=== PATIENT | female | born 1965 | race Caucasian/White ===

== ENCOUNTER 2017-05-31 18:04 | Emergency (ER) | payer SELFPAY ==
[~2017-05-31] VITALS: Ht 147.3 cm; Wt 86.2 kg
[~2017-05-31 18:04] MED LIST: HYDR-4446 PO
[2017-05-31 18:27] VITALS: BP 145/94
[2017-05-31] MEDS ORDERED: IBUPROFEN 400 MG TAB PO ONE (18:35)
--- NOTE | 2017-05-31 19:40 | NUR ---
PT. AMBULATES TO ER OF 1
[2017-05-31] MEDS ORDERED: KETOROLAC 60 MG/2 ML VIAL IM ONE (19:45)
--- NOTE | 2017-05-31 19:45 | NUR ---
Patient being evaluated by MELLISA ATKINS at bedside.
--- NOTE | 2017-05-31 19:45 | NUR ---
51Y/F PT. BIB DAUGHTER WITH C/O RIGHT KNEE PAIN 08/24, JUMP OFF THE BED AND FELT HER RIGHT KNEE POP LAST WEDNESDAY MORNING. AAO X4, AMBULATORY WITH UNSTEADY GAIT DUE TO PAIN TO RT. KNEE. C/O PAIN 05/24. VSS, NO S/SX OF DISTRESS AT THIS TIME.
--- NOTE | 2017-05-31 20:15 | NUR ---
Patient discharged with v/s stable. Written and verbal after care instructions given and explained. Patient alert, oriented and verbalized understanding of instructions. Ambulatory with steady gait. All questions addressed prior to discharge. ID band removed. Patient advised to follow up with PMD. Rx of MOTRIN 800 MG given. Patient educated on indication of medication including possible reaction and side effects. Opportunity to ask questions provided and answered. D/C WITH RT. TEMOE SPLINT.
[2017-05-31 20:48] VITALS: BP 134/84
== END 2017-05-31 20:15 | disposition home or self-care (01) ==
LOC: MED 18:04
DX: S89.81XA Other specified injuries of right lower leg, initial encounter (principal); Z88.1 Allergy status to other antibiotic agents; X50.1XXA Overexertion from prolonged static or awkward postures, initial encounter; Y93.89 Activity, other specified; Y92.89 Other specified places as the place of occurrence of the external cause; Y99.8 Other external cause status
CPT/HCPCS: 29505; 73562; 96372; 99284; J1885

== ENCOUNTER 2018-09-16 16:22 | Emergency (ER) | payer MEDICAID ==
[~2018-09-16] VITALS: Ht 147.3 cm; Wt 79.9 kg
[~2018-09-16 16:22] MED LIST changes: +ACET-8386 PO; -HYDR-4446 PO
--- NOTE | 2018-09-16 16:27 | NUR ---
PT AMBULATES TO BED 4
[2018-09-16 16:31] VITALS: BP 140/80
--- NOTE | 2018-09-16 16:37 | NUR ---
53 YO F BIB DAUGHTER WITH C/O PAINFUL RASH/BLISTER ON THE RT INNER/LATERAL THIGH X 1 WK. PT REPORTS THAT SHE DOES NOT KNOW HOW SHE RECEIVED THE RASH/BLISTER. DENIES SPILLING ANYTHING HOT OR ANY SUN BURN. ONE SINGLE BLISTER/RASH NOTED AT THIS TIME. PT DENIES N/V/D/FEVER. AAOX4, GCS 15, CMS INTACT, RR EVEN AND UNLABORED, LUNGS BL CLEAR. ABD SOFT, NON-TENDER. BOWEL SOUNDS ACTIVE X 4. AMBULATORY W/ STEADY GAIT. ER MD NOTIFIED. PT NEEDS MET, SAFETY PRECAUTIONS IN PLACE. WILL CONTINUE TO MONITOR.
[2018-09-16 16:49] VITALS: BP 140/80
--- NOTE | 2018-09-16 16:50 | NUR ---
Patient discharged with v/s stable. Written and verbal after care instructions given and explained. Patient alert, oriented and verbalized understanding of instructions. Ambulatory with steady gait. All questions addressed prior to discharge. ID band removed. Patient advised to follow up with PMD. Rx of Acyclovir, [place], and Gabapentin given. Patient educated on indication of medication including possible reaction and side effects. Opportunity to ask questions provided and answered.
== END 2018-09-16 16:50 | disposition home or self-care (01) ==
LOC: MED 16:22
DX: B02.9 Zoster without complications (principal); E11.9 Type 2 diabetes mellitus without complications; Z90.49 Acquired absence of other specified parts of digestive tract; Z88.1 Allergy status to other antibiotic agents; Z79.1 Long term (current) use of non-steroidal anti-inflammatories (NSAID)
CPT/HCPCS: 99283

== ENCOUNTER 2019-01-15 11:36 | Emergency (ER) | payer OTHER ==
[~2019-01-15] VITALS: Ht 147.3 cm; Wt 81.2 kg
[2019-01-15 11:48] VITALS: BP 116/84
--- NOTE | 2019-01-15 11:52 | NUR ---
PT AMBULATES TO BED 6
--- NOTE | 2019-01-15 12:00 | NUR ---
PATIENT PRESENTS TO THE ED WITH C/O PRODUCTIVE COUGH [id number]. PATIENT REPORTS TAKING NYQUIL BUT NO RELIEF. PATIENT DENIES PAIN. NO S/S OF DISTRESS AT THIS TIME. BED LOWERED WITH SIDE RAILS UP. HX:YAMILET
[2019-01-15] MEDS ORDERED: DEXAMETHASONE 10 MG/ML VIAL IM ONE (12:35)
[2019-01-15] MEDS ORDERED: ALBUTEROL SULFATE/IPRATROPIU 3 ML SOL IH ONE (12:35)
[2019-01-15] MEDS ORDERED: CLINDAMYCIN 600 MG/4 ML VIAL IM ONE (12:35)
--- NOTE | 2019-01-15 12:59 | NUR ---
XRAY AT BEDSIDE
[2019-01-15 13:48] VITALS: BP 138/92
--- NOTE | 2019-01-15 13:49 | NUR ---
Patient discharged with v/s stable. Written and verbal after care instructions given and explained. Patient alert, oriented and verbalized understanding of instructions. Ambulatory with steady gait. All questions addressed prior to discharge. ID band removed. Patient advised to follow up with PMD. Rx of MOTRIN, AZITHROMYCIN, PROMETHAZINE given. Patient educated on indication of medication including possible reaction and side effects. Opportunity to ask questions provided and answered.
== END 2019-01-15 13:49 | disposition home or self-care (01) ==
LOC: MED 11:36
DX: R05 Cough (principal); R09.89 Other specified symptoms and signs involving the circulatory and respiratory systems; R51 Headache; E11.9 Type 2 diabetes mellitus without complications; Z79.891 Long term (current) use of opiate analgesic; Z88.1 Allergy status to other antibiotic agents
CPT/HCPCS: 71045; 94640; 96372; 99283; J1100; J3490; J7620; Q0092